=== PATIENT | female | born 1950 | race Caucasian/White ===

== ENCOUNTER 2019-05-29 12:52 | Inpatient (IN) | payer MEDICARE, OTHER ==
[~2019-05-29] VITALS: Ht 167.6 cm; Wt 62.6 kg
--- NOTE | 2019-05-29 13:20 | NUR ---
PT STATES SHE HAS HAD A COLD, COUGH FOR A COUPLE WEEKS, SHE FINISHED A Z PACK AND STEROID TAPER BUT HAS NOT BEGAN TO FEEL BETTER.
[2019-05-29] MEDS ORDERED: ALBUTEROL/IPRATROPIUM 2.5MG/0.5MG, 3 ML NPPB ONE (13:30)
[2019-05-29 13:51] LABS: BASOPHILS # (AUTO) 0.05 x10^3/uL (0-0.1); BASOPHILS % (AUTO) 1 % (0-1); EOSINOPHILS % (AUTO) 1 % (1-7); LYMPHOCYTES # (AUTO) 2.43 x10^3/uL (1-3.4); LYMPHOCYTES % (AUTO) 32 % (22-44); MD NO; MEAN CORPUSCULAR HEMOGLOBIN 29.1 pg (27.0-34.8); MEAN CORPUSCULAR HGB CONC 32.7 g/dL (32.4-35.8); MEAN PLATELET VOLUME 10.2 fL (7.4-10.4); MONOCYTES # (AUTO) 0.64 x10^3/uL (0.2-0.8); MONOCYTES % (AUTO) 8 % (2-9); NEUTROPHILS # (AUTO) 4.45 x10^3/uL (1.8-6.8); NEUTROPHILS % (AUTO) 58 % (42-75); PLATELET COUNT 178 x10^3/uL (130-400); RED BLOOD COUNT 5.33 x10^6/uL (3.82-5.3); RED CELL DISTRIBUTION WIDTH 15.7 % (9.6-15.2)
[2019-05-29] MEDS ORDERED: ALBUTEROL/IPRATROPIUM 2.5MG/0.5MG, 3 ML ONE (13:51)
--- NOTE | 2019-05-29 13:55 | NUR ---
PT WITH EPISODE OF SVT FOR 2 MIN, RATE UP TO 215. DR OLIVA MADE AWARE. PT SELF CONVERTED BACK TO SR 80, BP STABLE 105/78. NO NEW ORDERS AT THIS TIME. RT TREATMENT CANCELLED PER
[2019-05-29 13:58] LABS: ALANINE AMINOTRANSFERASE 26 U/L (12-78); ALBUMIN 3.3 g/dL (3.4-5.0); ANION GAP 7 mmol/L (5-15); CALCIUM 9.1 mg/dL (8.5-10.1); CHLORIDE 108 mmol/L (98-107); CREATININE 1.12 mg/dL (0.55-1.02)
[2019-05-29 14:01] LABS: ALKALINE PHOSPHATASE 159 U/L (45-117); BILIRUBIN,TOTAL 0.4 mg/dL (0.2-1.0); TOTAL PROTEIN 7.6 g/dL (6.4-8.2)
[2019-05-29 14:40] LABS: TROPONIN I 0.015 ng/mL (0.000-0.045)
[2019-05-29] MEDS ORDERED: URSO300C27 PO ×2 (15:06)
[2019-05-29] MEDS ORDERED: LEVO50TA5 PO (15:06)
--- NOTE | 2019-05-29 15:15 | NUR ---
REPORT CALLED TO RECIEVING RN. AWAITING TRANSPORT
[2019-05-29] MEDS ORDERED: OMNIPAQUE 350 MG/ML, 100ML BOTTLE ONE (15:35)
[2019-05-29 15:48] VITALS: BP 147/83
[2019-05-29] MEDS: methylPREDNISolone SOD SUCC 40 MG/ML IV SCH (15:56)
[2019-05-29] MEDS ORDERED: ONDANSETRON ODT 4 MG PO PRN (16:00)
[2019-05-29] MEDS: ENOXAPARIN 40 MG/0.4 ML SQ SCH (16:18)
[2019-05-29] MEDS: SODIUM CHLORIDE 0.9% 1,000 ML IV SCH (16:18)
[2019-05-29 16:26] LABS: FREE T4 (FREE THYROXINE) 1.19 ng/dL (0.76-1.46)
[2019-05-29 19:46] VITALS: BP 149/83
[2019-05-29] MEDS: BUDESONIDE 0.5 MG/2 ML INHA NPPB SCH (19:49)
[2019-05-29] MEDS: ALBUTEROL SULFATE 2.5 MG/3 ML NPPB SCH (19:49)
[2019-05-29] MEDS: URSODIOL 300 MG CAPSULE PO SCH (20:37)
[2019-05-29] MEDS: DOXYCYCLINE 100MG TABLET PO SCH (20:37)
[2019-05-30] MEDS: SODIUM CHLORIDE 0.9% 1,000 ML IV SCH ×3 (00:07→16:09)
[2019-05-30] MEDS: methylPREDNISolone SOD SUCC 40 MG/ML IV SCH ×3 (00:11→16:10)
[2019-05-30 01:55] VITALS: BP 113/76
[2019-05-30] MEDS: ALBUTEROL SULFATE 2.5 MG/3 ML NPPB SCH ×4 (03:00→21:27)
[2019-05-30 05:10] LABS: ANION GAP 7 mmol/L (5-15); CALCIUM 8.3 mg/dL (8.5-10.1); CHLORIDE 109 mmol/L (98-107)
[2019-05-30 05:49] LABS: MEAN CORPUSCULAR HEMOGLOBIN 29.3 pg (27.0-34.8); MEAN CORPUSCULAR HGB CONC 32.8 g/dL (32.4-35.8); MEAN CORPUSCULAR VOLUME 89.5 fL (80-100); MEAN PLATELET VOLUME 11.5 fL (7.4-10.4); PLATELET COUNT 182 x10^3/uL (130-400); RED BLOOD COUNT 4.92 x10^6/uL (3.82-5.3)
[2019-05-30 05:52] LABS: BASOPHILS # (AUTO) 0.01 x10^3/uL (0-0.1); BASOPHILS % (AUTO) 0 % (0-1); EOSINOPHILS # (AUTO) 0.03 x10^3/uL (0-0.4); EOSINOPHILS % (AUTO) 1 % (1-7); LYMPHOCYTES # (AUTO) 0.91 x10^3/uL (1-3.4); LYMPHOCYTES % (AUTO) 18 % (22-44); MD SCAN; MONOCYTES # (AUTO) 0.11 x10^3/uL (0.2-0.8); MONOCYTES % (AUTO) 2 % (2-9); NEUTROPHILS # (AUTO) 4.06 x10^3/uL (1.8-6.8); NEUTROPHILS % (AUTO) 79 % (42-75)
[2019-05-30] MEDS: LEVOTHYROXINE 50 MCG TABLET PO SCH (05:57)
[2019-05-30] MEDS: URSODIOL 300 MG CAPSULE PO SCH ×2 (08:05→20:12)
[2019-05-30] MEDS: DOXYCYCLINE 100MG TABLET PO SCH ×2 (08:05→20:13)
[2019-05-30 08:14] VITALS: BP 105/72
[2019-05-30] MEDS ORDERED: FLUTICASONE/VILANTEROL 200-25MCG/INH INH SCH (09:00)
[2019-05-30] MEDS: BUDESONIDE 0.5 MG/2 ML INHA NPPB SCH ×2 (09:00→21:27)
[2019-05-30] MEDS ORDERED: CALCIUM CARBONATE 500 MG TAB.CHEW PO PRN (13:00)
[2019-05-30 13:37] VITALS: BP 110/64
[2019-05-30] MEDS: ENOXAPARIN 40 MG/0.4 ML SQ SCH (16:10)
[2019-05-30 19:58] VITALS: BP 125/65
[2019-05-30 23:22] VITALS: BP 146/93
[2019-05-31 00:08] LABS: BASOPHILS # (AUTO) 0.01 x10^3/uL (0-0.1); BASOPHILS % (AUTO) 0 % (0-1); EOSINOPHILS # (AUTO) 0.02 x10^3/uL (0-0.4); EOSINOPHILS % (AUTO) 0 % (1-7); LYMPHOCYTES # (AUTO) 0.64 x10^3/uL (1-3.4); LYMPHOCYTES % (AUTO) 10 % (22-44); MD NO; MEAN CORPUSCULAR HEMOGLOBIN 28.9 pg (27.0-34.8); MEAN CORPUSCULAR HGB CONC 32.1 g/dL (32.4-35.8); MEAN CORPUSCULAR VOLUME 89.9 fL (80-100); MEAN PLATELET VOLUME 10.4 fL (7.4-10.4); MONOCYTES % (AUTO) 5 % (2-9); NEUTROPHILS # (AUTO) 5.41 x10^3/uL (1.8-6.8); NEUTROPHILS % (AUTO) 85 % (42-75); PLATELET COUNT 146 x10^3/uL (130-400); RED BLOOD COUNT 4.58 x10^6/uL (3.82-5.3); RED CELL DISTRIBUTION WIDTH 16.1 % (9.6-15.2)
[2019-05-31 00:15] LABS: ANION GAP 2 mmol/L (5-15); CALCIUM 8.5 mg/dL (8.5-10.1); CHLORIDE 115 mmol/L (98-107); CREATININE 0.96 mg/dL (0.55-1.02)
[2019-05-31 00:41] VITALS: BP 150/78
[2019-05-31] MEDS: methylPREDNISolone SOD SUCC 40 MG/ML IV SCH ×3 (00:50→21:16)
[2019-05-31] MEDS: ALBUTEROL SULFATE 2.5 MG/3 ML NPPB SCH ×4 (03:00→20:50)
[2019-05-31] MEDS: LEVOTHYROXINE 50 MCG TABLET PO SCH (05:17)
[2019-05-31] MEDS: BUDESONIDE 0.5 MG/2 ML INHA NPPB SCH ×2 (08:03→20:50)
[2019-05-31] MEDS: URSODIOL 300 MG CAPSULE PO SCH ×2 (08:27→21:16)
[2019-05-31] MEDS: DOXYCYCLINE 100MG TABLET PO SCH ×2 (08:28→21:16)
[2019-05-31 09:00] VITALS: BP 122/74
[2019-05-31] MEDS ORDERED: LISINOPRIL 10 MG TABLET PO SCH (09:30)
[2019-05-31] MEDS: NEUTRA PHOS K 250 MG TABLET PO SCH ×3 (11:03→21:16)
[2019-05-31 13:53] VITALS: BP 146/67
[2019-05-31] MEDS: ENOXAPARIN 40 MG/0.4 ML SQ SCH (16:38)
[2019-05-31] MEDS: CARVEDILOL 3.125 MG TABLET PO SCH (16:39)
[2019-05-31 20:27] VITALS: BP 127/74
[2019-05-31] MEDS ORDERED: MAGNESIUM SULFATE PMX 2GM/50ML 50 ML IV ONE (22:30)
[2019-06-01 01:11] VITALS: BP 120/70
[2019-06-01] MEDS: ALBUTEROL SULFATE 2.5 MG/3 ML NPPB SCH ×2 (02:57→08:08)
[2019-06-01 05:16] LABS: ANION GAP 4 mmol/L (5-15); CALCIUM 8.4 mg/dL (8.5-10.1); CHLORIDE 113 mmol/L (98-107); CREATININE 0.85 mg/dL (0.55-1.02)
[2019-06-01] MEDS: LEVOTHYROXINE 50 MCG TABLET PO SCH (06:14)
[2019-06-01] MEDS: CARVEDILOL 3.125 MG TABLET PO SCH (06:15)
[2019-06-01 07:29] VITALS: BP 127/83
[2019-06-01] MEDS: BUDESONIDE 0.5 MG/2 ML INHA NPPB SCH (08:08)
[2019-06-01] MEDS: methylPREDNISolone SOD SUCC 40 MG/ML IV SCH (08:46)
[2019-06-01] MEDS: NEUTRA PHOS K 250 MG TABLET PO SCH (08:46)
[2019-06-01] MEDS: DOXYCYCLINE 100MG TABLET PO SCH (08:46)
[2019-06-01] MEDS: URSODIOL 300 MG CAPSULE PO SCH (08:46)
[2019-06-01] MEDS ORDERED: CARV3.1212 PO (10:04)
[2019-06-01] MEDS ORDERED: BENZ100C PO (10:04)
[2019-06-01] MEDS ORDERED: ALBU8.5H8 INH (10:04)
[2019-06-01] MEDS ORDERED: DOXY100T PO (10:04)
[2019-06-01] MEDS ORDERED: TIOT18CA INH (10:04)
== END 2019-06-01 12:58 | disposition home or self-care (01) | DRG 189 ==
LOC: ED 14:01 → EDIP 14:56 → 5SO 15:54 → DCLOUNGE 06-01 12:50
PROVIDERS: ADMIT Internal Medicine Infectious Disease; ATTEND Internal Medicine
DX: J96.01 Acute respiratory failure with hypoxia (principal); I47.1 Supraventricular tachycardia; J44.1 Chronic obstructive pulmonary disease with (acute) exacerbation; J44.0 Chronic obstructive pulmonary disease with (acute) lower respiratory infection; E03.9 Hypothyroidism, unspecified; F17.200 Nicotine dependence, unspecified, uncomplicated; K21.9 Gastro-esophageal reflux disease without esophagitis; K75.4 Autoimmune hepatitis; Z74.01 Bed confinement status; J20.8 Acute bronchitis due to other specified organisms
CPT/HCPCS: 36415; 84145; 99285; J7613; J7626; 71045; 71275; 80048; 80053; 83735; 84100; 84439; 84443; 84484; 85025; 87633; 93005; 93306; 94640; G0378; J1650; Q9967; J2920; J3475; J7030; J7512